=== PATIENT | male | born 1970 | race Caucasian/White ===

== ENCOUNTER 2016-12-06 05:43 | Inpatient (IN) | payer OTHER ==
[2016-11-30 14:14] LABS: BASOPHILS % (AUTO) 0.5 % (0.0-2.0); EOSINOPHILS % (AUTO) 1.8 % (1.0-6.0); HEMOGLOBIN 16.1 g/dL (13.5-17.5); LYMPHOCYTES # (AUTO) 2.8 K/uL (1.0-4.8); LYMPHOCYTES % (AUTO) 33.8 % (22.0-44.0); MEAN CORPUSCULAR HEMOGLOBIN 28.9 pg (26.0-34.0); MEAN CORPUSCULAR HGB CONC 33.6 G/dL (31.0-37.0); MEAN CORPUSCULAR VOLUME 86 fL (80-100); MONOCYTES # (AUTO) 0.4 K/uL (0.1-1.0); MONOCYTES % (AUTO) 5.4 % (2.0-9.0); NEUTROPHILS # (AUTO) 4.8 K/uL (1.8-7.7); NEUTROPHILS % (AUTO) 58.5 % (40.0-70.0); PLATELET COUNT (AUTO) 329 K/uL (150-450); RED BLOOD CELL COUNT(AUTO) 5.59 MIL/uL (4.50-5.90); RED CELL DISTRIBUTION WIDTH 13.2 % (11.5-14.5); WHITE BLOOD COUNT (AUTO) 8.2 K/uL (4.5-11.0)
[2016-11-30 14:23] LABS: ANION GAP 7 mmol/L (8-16); CALCIUM, TOTAL 9.1 mg/dL (8.8-10.5); CARBON DIOXIDE 31 mmol/L (22-29); CHLORIDE 101 mmol/L (98-107); CREATININE 0.98 mg/dL (0.60-1.30); GLOMERULAR FILTR. RATE CALC > 60 mL/min (>60); POTASSIUM 3.7 mmol/L (3.5-5.1); SODIUM SERUM 139 mmol/L (136-145); UREA NITROGEN, BLOOD 11 mg/dL (7-18)
[2016-11-30 14:30] LABS: ALANINE AMINOTRANSFERASE 72 U/L (12-78); ALBUMIN 4.1 g/dL (3.4-5.0); ASPARTATE AMINOTRANSFERASE 35 U/L (15-37); BILIRUBIN,TOTAL 0.7 mg/dL (0.1-1.0); TOTAL PROTEIN, SERUM 7.7 g/dL (6.4-8.2)
[2016-11-30 14:31] LABS: PROTHROMBIN TIME 10.4 SEC (9.4-11.6)
[~2016-12-06] VITALS: Ht 175.3 cm; Wt 105.9 kg
[~2016-12-06 05:43] MED LIST: ATOR10TA84 PO; IBUP-1681 PO
[2016-12-06] MEDS ORDERED: RINGERS SOLUTION,LACTATED 1,000 ML IV ONE ×4 (05:54→08:21)
[2016-12-06] MEDS ORDERED: CeFAZolin 2 GM/DEXTROSE 50 ML IV ONE ×2 (05:54→07:00)
[2016-12-06] MEDS ORDERED: SODIUM CHLORIDE 0.9% 250 ML IV ONE (06:47)
[2016-12-06] MEDS ORDERED: ACETAMINOPHEN 1000 MG/ISO-OSM 100 ML IV ONE ×2 (07:00→07:12)
[2016-12-06] MEDS ORDERED: SODIUM CHLORIDE 0.9% 10 ML ONE (07:05)
[2016-12-06 07:37] LABS: APPEARANCE,URINE CLEAR (CLEAR); GLUCOSE, URINE (UA) NEGATIVE (NEGATIVE); KETONES,URINE NEGATIVE (NEGATIVE); LEUKOCYTE ESTERASE ,URINE NEGATIVE (NEGATIVE); OCCULT BLOOD,URINE SMALL (NEGATIVE); PROTEIN,URINE NEGATIVE (NEGATIVE)
[2016-12-06 07:43] LABS: ADD UA MICROSCOPIC YES
[2016-12-06 07:50] LABS: RBC,URINE 0-2 /HPF (0-2); WBC,URINE 0-2 /HPF (0-5)
[2016-12-06] MEDS: GELATIN SPONGE,ABSORBABLE 100 MM TP ONE ×3 (08:16→10:22)
[2016-12-06] MEDS: BACITRACIN 50,000 UNITS/VIAL ONE ×2 (08:16→08:51)
[2016-12-06] MEDS: THROMBIN, BOVINE 20000 UNITS/VIAL POWDER TP ONE ×2 (08:16→08:50)
[2016-12-06] MEDS ORDERED: ROCURONIUM BROMIDE 10 MG/ML 5 ML VIAL ONE (08:42)
[2016-12-06] MEDS: VANCOMYCIN HCL 1 GM/VIAL ONE ×2 (08:51→10:00)
[2016-12-06] MEDS ORDERED: FentaNYL CITRATE-PF 100 MCG/2 ML VIAL IVP PRN (09:00)
[2016-12-06] MEDS ORDERED: HYDROmorphone 2 MG/ML SYRINGE IVP PRN ×2 (09:00→10:30)
[2016-12-06] MEDS ORDERED: MEPERIDINE-PF 25 MG/ML SYRINGE IVP PRN (09:00)
[2016-12-06] MEDS: LIDOCAINE HCL 1%/EPI 1:200,000/PF 30 ML VIAL ONE ×2 (10:18→11:15)
[2016-12-06] MEDS ORDERED: DiphenhydrAMINE HCL 50 MG/ML VIAL IVP PRN (10:30)
[2016-12-06] MEDS ORDERED: PROMETHAZINE HCL 12.5 MG in SODIUM CHLORIDE 0.9% 50 ML IV PRN (10:30)
[2016-12-06] MEDS ORDERED: ZOLPIDEM TARTRATE 10 MG TABLET PO PRN (10:30)
[2016-12-06] MEDS ORDERED: VANCOMYCIN HCL 1 GM/VIAL ONE (11:07)
[2016-12-06] MEDS ORDERED: RINGERS SOLUTION,LACTATED 500 ML IV ONE (12:08)
[2016-12-06] MEDS ORDERED: HYDROmorphone 2 MG/ML SYRINGE ONE (12:27)
[2016-12-06 13:33] VITALS: BP 136/78
[2016-12-06] MEDS: ONDANSETRON HCL 4 MG/2 ML VIAL IVP PRN (14:03)
[2016-12-06] MEDS: CeFAZolin 1 GM/DEXTROSE 50 ML IV SCH ×2 (14:04→19:58)
[2016-12-06] MEDS: ACETAMINOPHEN 1000 MG/ISO-OSM 100 ML IV SCH ×2 (15:07→21:03)
[2016-12-06 17:48] VITALS: BP 138/71
[2016-12-06 20:00] VITALS: BP 130/77
[2016-12-06] MEDS: OXYGEN THERAPY IH SCH (20:00)
[2016-12-06] MEDS ORDERED: OXYGEN THERAPY IH SCH (20:00)
[2016-12-06 23:08] VITALS: BP 130/58
[2016-12-06] MEDS: CYCLOBENZAPRINE HCL 10 MG TABLET PO PRN (23:08)
[2016-12-07] MEDS: ACETAMINOPHEN 1000 MG/ISO-OSM 100 ML IV SCH (03:23)
[2016-12-07 03:24] VITALS: BP 135/72
[2016-12-07 05:27] LABS: BASOPHILS % (AUTO) 0.1 % (0.0-2.0); EOSINOPHILS % (AUTO) 0 % (1.0-6.0); HEMATOCRIT 42.7 % (41-53); HEMOGLOBIN 14.2 g/dL (13.5-17.5); LYMPHOCYTES # (AUTO) 1.8 K/uL (1.0-4.8); LYMPHOCYTES % (AUTO) 12.9 % (22.0-44.0); MEAN CORPUSCULAR HEMOGLOBIN 28.9 pg (26.0-34.0); MEAN CORPUSCULAR HGB CONC 33.4 G/dL (31.0-37.0); MEAN CORPUSCULAR VOLUME 87 fL (80-100); MONOCYTES # (AUTO) 0.9 K/uL (0.1-1.0); MONOCYTES % (AUTO) 6.2 % (2.0-9.0); NEUTROPHILS # (AUTO) 11.2 K/uL (1.8-7.7); NEUTROPHILS % (AUTO) 80.8 % (40.0-70.0); PLATELET COUNT (AUTO) 308 K/uL (150-450); RED BLOOD CELL COUNT(AUTO) 4.93 MIL/uL (4.50-5.90); RED CELL DISTRIBUTION WIDTH 12.8 % (11.5-14.5); WHITE BLOOD COUNT (AUTO) 13.9 K/uL (4.5-11.0)
[2016-12-07 06:05] LABS: ANION GAP 11 mmol/L (8-16); CALCIUM, TOTAL 8.2 mg/dL (8.8-10.5); CARBON DIOXIDE 26 mmol/L (22-29); CHLORIDE 103 mmol/L (98-107); CREATININE 0.88 mg/dL (0.60-1.30); GLOMERULAR FILTR. RATE CALC > 60 mL/min (>60); POTASSIUM 3.7 mmol/L (3.5-5.1); SODIUM SERUM 140 mmol/L (136-145); UREA NITROGEN, BLOOD 9 mg/dL (7-18)
[2016-12-07] MEDS: OXYGEN THERAPY IH SCH ×2 (08:00→22:13)
[2016-12-07 08:05] VITALS: BP 127/75
[2016-12-07] MEDS: OxyCODONE HCL/ACETAMINOPHEN 10-325 MG TABLET PO PRN ×3 (08:18→20:08)
[2016-12-07] MEDS: ATORVASTATIN CALCIUM 10 MG TABLET PO SCH (08:18)
[2016-12-07] MEDS: ONDANSETRON HCL 4 MG/2 ML VIAL IVP PRN (09:17)
[2016-12-07 11:54] VITALS: BP 125/68
[2016-12-07] MEDS ORDERED: LIDOCAINE HCL/PF 2% 5 ML VIAL INJ ONE (12:00)
[2016-12-07] MEDS ORDERED: ROCURONIUM BROMIDE 10 MG/ML 5 ML VIAL IVP ONE (12:00)
[2016-12-07] MEDS ORDERED: PROPOFOL 1% 20 ML VIAL IVP ONE (12:00)
[2016-12-07] MEDS ORDERED: ONDANSETRON HCL 4 MG/2 ML VIAL IVP ONE (12:00)
[2016-12-07] MEDS ORDERED: SUCCINYLCHOLINE CHLORIDE 20 MG/ML 10 ML VIAL IVP ONE (12:00)
[2016-12-07] MEDS ORDERED: METOCLOPRAMIDE HCL 5 MG/ML 2 ML VIAL IVP ONE (12:00)
[2016-12-07] MEDS ORDERED: GLYCOPYRROLATE 0.2 MG/ML VIAL IM ONE (12:00)
[2016-12-07] MEDS: CYCLOBENZAPRINE HCL 10 MG TABLET PO PRN (15:49)
[2016-12-07 15:50] VITALS: BP 131/72
[2016-12-07 19:54] VITALS: BP 136/74
[2016-12-07 23:53] VITALS: BP 127/61
[2016-12-08 04:21] VITALS: BP 117/70
[2016-12-08 06:51] LABS: BASOPHILS % (AUTO) 0.2 % (0.0-2.0); EOSINOPHILS % (AUTO) 0.1 % (1.0-6.0); HEMOGLOBIN 14.1 g/dL (13.5-17.5); LYMPHOCYTES # (AUTO) 2.1 K/uL (1.0-4.8); LYMPHOCYTES % (AUTO) 13.1 % (22.0-44.0); MEAN CORPUSCULAR HEMOGLOBIN 28.6 pg (26.0-34.0); MEAN CORPUSCULAR HGB CONC 32.9 G/dL (31.0-37.0); MEAN CORPUSCULAR VOLUME 87 fL (80-100); MONOCYTES # (AUTO) 1.1 K/uL (0.1-1.0); MONOCYTES % (AUTO) 6.8 % (2.0-9.0); NEUTROPHILS # (AUTO) 12.7 K/uL (1.8-7.7); NEUTROPHILS % (AUTO) 79.8 % (40.0-70.0); PLATELET COUNT (AUTO) 293 K/uL (150-450); RED BLOOD CELL COUNT(AUTO) 4.94 MIL/uL (4.50-5.90); RED CELL DISTRIBUTION WIDTH 13.3 % (11.5-14.5)
[2016-12-08 07:25] LABS: ANION GAP 6 mmol/L (8-16); CARBON DIOXIDE 31 mmol/L (22-29); CHLORIDE 101 mmol/L (98-107); CREATININE 0.94 mg/dL (0.60-1.30); GLOMERULAR FILTR. RATE CALC > 60 mL/min (>60); POTASSIUM 3.5 mmol/L (3.5-5.1); SODIUM SERUM 138 mmol/L (136-145); UREA NITROGEN, BLOOD 9 mg/dL (7-18)
[2016-12-08] MEDS: ATORVASTATIN CALCIUM 10 MG TABLET PO SCH (07:51)
[2016-12-08 08:00] VITALS: BP 125/76
[2016-12-08] MEDS: OXYGEN THERAPY IH SCH ×2 (08:00→20:00)
[2016-12-08] MEDS: ACETAMINOPHEN 325 MG TABLET PO PRN ×2 (10:31→15:19)
[2016-12-08] MEDS ORDERED: SODIUM CHLORIDE 0.9% 500 ML IV ONE (10:56)
[2016-12-08] MEDS: LEVOFLOXACIN 500 MG/D5% WATER 100 ML IV SCH (11:38)
[2016-12-08 11:40] VITALS: BP 142/79
[2016-12-08] MEDS ORDERED: PERCT10 PO (14:42)
[2016-12-08] MEDS ORDERED: CYCL10 PO (14:43)
[2016-12-08] MEDS ORDERED: LEVO500 PO (14:43)
[2016-12-08 15:19] VITALS: BP 137/73
[2016-12-08] MEDS: OxyCODONE HCL/ACETAMINOPHEN 10-325 MG TABLET PO PRN (19:44)
[2016-12-08 19:46] VITALS: BP 134/83
[2016-12-09 00:07] VITALS: BP 107/61
[2016-12-09 03:58] VITALS: BP 129/76
[2016-12-09 06:46] LABS: BASOPHILS % (AUTO) 0.1 % (0.0-2.0); EOSINOPHILS % (AUTO) 1.6 % (1.0-6.0); HEMATOCRIT 41.9 % (41-53); LYMPHOCYTES # (AUTO) 2.5 K/uL (1.0-4.8); LYMPHOCYTES % (AUTO) 19.7 % (22.0-44.0); MEAN CORPUSCULAR HEMOGLOBIN 29.1 pg (26.0-34.0); MEAN CORPUSCULAR HGB CONC 33.4 G/dL (31.0-37.0); MEAN CORPUSCULAR VOLUME 87 fL (80-100); MONOCYTES # (AUTO) 0.9 K/uL (0.1-1.0); MONOCYTES % (AUTO) 7.4 % (2.0-9.0); NEUTROPHILS % (AUTO) 71.2 % (40.0-70.0); PLATELET COUNT (AUTO) 271 K/uL (150-450); RED BLOOD CELL COUNT(AUTO) 4.81 MIL/uL (4.50-5.90); RED CELL DISTRIBUTION WIDTH 12.9 % (11.5-14.5); WHITE BLOOD COUNT (AUTO) 12.7 K/uL (4.5-11.0)
[2016-12-09] MEDS ORDERED: SODIUM CHLORIDE 0.9% 250 ML IV ONE (06:47)
[2016-12-09 07:11] LABS: ANION GAP 7 mmol/L (8-16); CARBON DIOXIDE 30 mmol/L (22-29); CHLORIDE 100 mmol/L (98-107); CREATININE 0.82 mg/dL (0.60-1.30); GLOMERULAR FILTR. RATE CALC > 60 mL/min (>60); POTASSIUM 3.2 mmol/L (3.5-5.1); SODIUM SERUM 137 mmol/L (136-145); UREA NITROGEN, BLOOD 7 mg/dL (7-18)
[2016-12-09 07:24] VITALS: BP 116/62
[2016-12-09] MEDS: OXYGEN THERAPY IH SCH (08:00)
[2016-12-09] MEDS: ATORVASTATIN CALCIUM 10 MG TABLET PO SCH (08:04)
[2016-12-09] MEDS ORDERED: DOCUSATE SODIUM 100 MG CAPSULE PO SCH (09:00)
[2016-12-09] MEDS: LEVOFLOXACIN 500 MG/D5% WATER 100 ML IV SCH (11:14)
[2016-12-09] MEDS: CYCLOBENZAPRINE HCL 10 MG TABLET PO PRN (11:23)
[2016-12-09 11:24] VITALS: BP 128/71
[2016-12-09] MEDS ORDERED: MIDAZOLAM HCL 2 MG/2 ML VIAL IVP ONE (16:21)
[2016-12-09] MEDS ORDERED: FentaNYL CITRATE-PF 250 MCG/5 ML VIAL IVP ONE (16:21)
[2016-12-09] MEDS ORDERED: KETAMINE HCL 50 MG/ML 10 ML VIAL IVP ONE (16:21)
== END 2016-12-09 16:22 | disposition home or self-care (01) | DRG 455 ==
LOC: 4E 05:43
PROVIDERS: ADMIT Neurological Surgery; ATTEND Neurological Surgery
PROC: 0SG30A0 Fusion of Lumbosacral Joint with Interbody Fusion Device, Anterior Approach, Anterior Column, Open Approach (ICD-10-PCS; 2016-12-06)
PROC: 0SG30Z1 (ICD-10-PCS; 2016-12-06)
PROC: 0SB40ZZ Excision of Lumbosacral Disc, Open Approach (ICD-10-PCS; 2016-12-06)
PROC: BR1B1ZZ Fluoroscopy of Lumbosacral Joint using Low Osmolar Contrast (ICD-10-PCS; 2016-12-06)
PROC: 0SG30Z1 (ICD-10-PCS; principal; 2016-12-06 08:16)
DX: M51.16 Intervertebral disc disorders with radiculopathy, lumbar region (principal); M25.78 Osteophyte, vertebrae; E78.5 Hyperlipidemia, unspecified; D72.829 Elevated white blood cell count, unspecified; M47.9 Spondylosis, unspecified; M40.57 Lordosis, unspecified, lumbosacral region; R53.81 Other malaise; Z79.899 Other long term (current) drug therapy
CPT/HCPCS: 72100; 87081; 93005; 97116; 97161; 97165; 97535; C1713; G0238; J0131; J0330; J0690; J1170; J1956; J2250; J2405; J2550; J2704; J2765; J3010; J3370; J3490; J7040; J7050; J7120